=== PATIENT | female | born 1950 ===

== ENCOUNTER 2016-11-13 09:49 | Day surgery (SDC) | payer MEDICARE ==
[2016-08-23 09:05] VITALS: BMI 32.2
[2016-11-13] MEDS ORDERED: Bupivacaine HCl 0.5% PF (10 ml) Inj ONE ×2 (11:52→14:00)
[2016-11-13] MEDS ORDERED: Lactated Ringer's 1,000 ML IV ONE ×2 (12:08)
[2016-11-13] MEDS: ceFAZolin IV 1 gm in Dextrose 50 ML IVPB ONE ×2 (12:08→12:30)
[2016-11-13] MEDS: Lidocaine 2% Inj (20ml) ONE ×2 (12:09→12:30)
[2016-11-13] MEDS: Bupivacaine HCl 0.5% PF (10 ml) Inj ONE ×3 (12:10→14:03)
[2016-11-13] MEDS ORDERED: ceFAZolin IV 1 gm in Dextrose 50 ML IVPB ONE (12:16)
[2016-11-13] MEDS ORDERED: Midazolam 2 MG/2 ML VIAL ONE (12:22)
[2016-11-13] MEDS ORDERED: Propofol 10 mg/ml Inj (20 ML) ONE ×3 (12:22→13:52)
[2016-11-13] MEDS ORDERED: Lidocaine Hydrochloride 5 ML INJ ONE (12:27)
[2016-11-13] MEDS ORDERED: Lidocaine 1% Inj (20ml) ONE (12:47)
[2016-11-13] MEDS ORDERED: HYDROmorphone 0.5 mg/0.5 ml ISec IVP PRN (14:41)
--- NOTE | 2016-11-13 14:43 | PCM.SURG1 ---
Surgeon's Initial Post Op Note - Surgeon's Notes Surgeon: Dr. Francois Compensation And Hris Analyst: Dr. Ott, PGY-1 Type of Anesthesia: IV Sedation, Local Anesthesia Administered By: Dr. Allan Pre-Operative Diagnosis: painful hallux abductovalgus, painful 2nd digit hammer toe, painful 5th digit hammer toe of right foot Operative Findings: see operative report Post-Operative Diagnosis: same Operation Performed: 1st metatarsal distal osteotomy (right), 2nd metatarsal weill osteotomy w/ extensor tenotomy (right), PIPJ arthroplasty 5th digit (right ) Specimen/Specimens Removed: none Estimated Blood Loss: EBL {In ML}: 5 Blood Products Given: N/A Drains Used: No Drains Post-Op Condition: Good Date of Surgery/Procedure: 11/13/16 Time of Surgery/Procedure: 12:20
[2016-11-13] MEDS ORDERED: Oxycodone/Acetaminophen 5/325 mg Tab PO PRN ×2 (14:44)
[2016-11-13] MEDS ORDERED: Lactated Ringer's 1,000 ML IV SCH (14:45)
[2016-11-13 17:04] VITALS: BP 140/80; PULSE 70; RESP 18; TEMP 98.8; O2SAT 100
--- NOTE | 2016-11-13 17:05 | RAD ---
PROCEDURE: Right Foot Radiographs. HISTORY: s/p right foot surgery COMPARISON: Bilateral foot radiographs performed 07/10/16 FINDINGS: Images are obtained through a splint which obscures osseous detail. Evidence of recent 1st metatarsal osteotomy for bunionectomy with 2 cortical screws providing stabilization at the osteotomy. No significant callus formation is identified at this time. K-wire noted at the level of the 5th proximal, mid, and distal phalanx. Small calcaneal enthesophyte. The remaining visualized osseous structures appear unremarkable. Soft tissue swelling. IMPRESSION: Postoperative appearance as above.
--- NOTE | 2016-11-13 17:51 | CP.SDSHP ---
Same Day Surgery H & P - History Proposed Procedure: 1st metatarsal distal osteotoym, 2nd metatarsal german osteotomy, 5th digit PIPJ arthroplasty (all right foot) Pre-Op Diagnosis: painful hallux valgus, painful hammer toe 2nd digit, painful hammer toe 5th digit (all right foot) - Previous Medical/Surgical History Pain: 5. - Allergies Allergies: Allergies No Known Allergies Allergy (Verified 07/07/15 12:21) - Current Medications Current Medications: Home Medication List Medication Instructions Recorded Confirmed Type Cephalexin [cephalexin] 500 mg PO BID #20 cap 11/13/16 Rx oxyCODONE/Acetaminophen [Percocet 1 ea PO Q4 PRN #30 tab 11/13/16 Rx 5/325 mg Tab] - Physical Exam Vital Signs: Vital Signs 11/13/16 11/13/16 11/13/16 10:08 14:41 14:55 Temperature 98.2 F Pulse Rate 90 93 H 90 Respiratory 18 14 14 Rate Blood Pressure 139/83 156/73 H 140/82 O2 Sat by Pulse 97 95 97 Oximetry 11/13/16 11/13/16 11/13/16 15:10 15:25 15:42 Temperature 96.8 F L Pulse Rate 87 84 91 H Respiratory 18 15 12 Rate Blood Pressure 140/82 136/80 147/84 O2 Sat by Pulse 98 100 97 Oximetry 11/13/16 16:30 Temperature 98.8 F Pulse Rate 70 Respiratory 18 Rate Blood Pressure 140/80 O2 Sat by Pulse 100 Oximetry Mental Status: Alert & Oriented x3 Neuro: WNL - Impression Impression: Pt seen and evaluated in [facility]. NPO status confirmed. Consent signed and in chart. Short Stay Discharge - Short Stay Discharge Admitting Diagnosis/Reason for Visit: GINNA Disposition: HOME/ ROUTINE Medications: Cephalexin [cephalexin] 500 mg PO BID #20 cap oxyCODONE/Acetaminophen [Percocet 5/325 mg Tab] 1 ea PO Q4 PRN #30 tab PRN Reason: Pain, Moderate (4-7) Referrals: Priscila Francois DPM [Staff Provider] - Additional Instructions (Diet, Activity): -Keep dressing clean, dry, intact (do note get dressing wet) -Use cast bag over dressing for showering -partial weight bearing to heel with surgical shoe -take all medications as prescribed -You have sutures that will be removed in the office -Follow up in the clinic with Dr. Francois in 1 week Progress Note/Discharge Note with Instructions: VSS, neurovascular status intact right foot.
--- NOTE | 2016-11-14 07:30 | OP ---
PROCEDURE DATE: 11/13/2016 SURGEON: Priscila Francois DPM. THREE DIMENSIONAL ART INSTRUCTOR: Dr. Shahana Salinas, PGY-1. VESSEL WELDER: Dr. Allan. ANESTHESIA: IV sedation with local. PREOPERATIVE DIAGNOSES: Painful hallux valgus deformity, right foot; painful second digit hammertoe, right foot; painful fifth digit hammertoe, right foot. POSTOPERATIVE DIAGNOSES: Painful hallux valgus deformity, right foot; painful second digit hammertoe , right foot; painful fifth digit hammertoe, right foot. PROCEDURE PERFORMED: First metatarsal distal osteotomy, right foot; second metatarsal Shannan osteotomy , right foot; fifth digit PIPJ arthroplasty, right foot. INDICATIONS FOR PROCEDURE: The patient is a 66-year-old female with the above diagnoses. The patien t has exhausted conservative treatment at this time and requests surgical intervention. The patient signed the consent after careful explanation of risks, benefits, complications and alternatives for s urgical procedure. No guarantees were given nor implied. One gram of Ancef IV was given to the shivani ent prior to the procedure. N.p.o. status was confirmed prior to taking the patient to the OR. DESCRIPTION OF PROCEDURE: The patient was brought into the operating room and placed on the operatin g room table in the supine position. A well-padded pneumatic ankle tourniquet was placed at the shivani ent's right ankle in the supramalleolar position. After induction of IV sedation, the patient receiv ed a total of 30 mL of 1:1 mixture of 0.5% Marcaine plain and 1% lidocaine plain in local block type fashion to the right foot. Once local anesthesia was achieved, the right foot was then prepped and d raped in usual sterile manner. Esmarch was utilized to exsanguinate the patient's right foot. Pneum atic ankle tourniquet was then inflated to 250 mmHg and the procedure began. Attention was then directed to the dorsal aspect of the first metatarsal head of the right foot where an approximately 6 cm linear longitudinal incision was made medial and parallel to the extensor corona ucis longus tendon and involved the contour of the deformity. The incision was deepened through the subcutaneous tissues using sharp and blunt dissection. At this time, it was noted that the patient r equired further local anesthesia and an additional 10 mL of 1% lidocaine plain was injected to the fo ot. Care was taken to identify and retract all vital neurovascular structures. All bleeders were ca uterized and ligated as necessary. Attention was then directed to the first interspace via the origi nal incision where the tendon of the extensor hallucis brevis was identified and tenotomized. Dissec tion was continued deep using blunt dissection down to the level of the fibular sesamoid, which was f samantha of its soft tissue attachments proximally, laterally, and distally. The conjoined tendon of the adductor hallucis muscle was then identified and transected at its attachments to the base of the pr oximal phalanx of the hallux. At this time, the lateral contracture present on the hallux was noted to be reduced and the sesamoid apparatus was noted to float in a more corrected medial position. At this time, an inverted L-type capsulotomy was performed over the dorsal aspect of the first metatarso phalangeal joint. The periosteal and capsular structures were then carefully dissected free of their osseous attachments and reflected medially and laterally to expose the head of the first metatarsal. Next, utilizing an oscillating bone saw, the dorsal and medial prominences were resected and passed from the operative field. All rough edges were then smoothed down with a bone rasp. At this time, the hip was externally rotated and the knee was flexed to bring the medial surface of the foot superi or to allow for better visualization of the medial aspect of the first metatarsal head for the osteot shawn cut. Attention was then directed to the medial aspect of the first metatarsal head where a throu gh and through V-type osteotomy was created in the metaphyseal region of the bone utilizing oscillati ng bone saw. The apex of the osteotomy pointed distally with the arms pointing proximal plantarly an d proximal dorsally. The dorsal arm was made longer to accommodate internal fixation. Upon completi on of the osteotomy, the capital fragment was distracted and shifted laterally into a more corrected position and impacted upon the first metatarsal shaft. At this time, two 0.045 inch K-wires were dri payal from dorsal to plantar across the osteotomy site to serve as temporary fixation. Following seque ntial removal of the K-wires and following standard AO technique, 2 cortical screws measuring 2.0 x 1 6 mm were inserted in their place across the osteotomy site with excellent compression noted. The re maining K-wires were then removed. Attention was then directed to the remaining medial bone shelf, w hich was resected utilizing the oscillating bone saw and passed from the operative field. Correction of the deformity was then assessed at this time and was noted to be excellent. The wound was flushe d with copious amounts of sterile normal saline solution. The periosteal and capsular structures wer e then reapproximated and coapted using #2-0 and #3-0 Vicryl. Redundant capsular tissues were resect ed as necessary. The subcutaneous tissues were then reapproximated and coapted using #4-0 Vicryl. T he skin was then reapproximated and coapted utilizing #3-0 Prolene in interrupted suture technique. Next, attention was directed to the second metatarsophalangeal joint. Using a #15 blade, a linear in cision was created just lateral to the second metatarsophalangeal joint. This was done to avoid post operative contracture overlying the second metatarsophalangeal joint and some minimal scar formation. The incision was carried down to deeper plane, paying careful attention to all neurovascular struct ures that were retracted, ligated and bovied as necessary. The incision was deepened down to the lev el of the long extensor tendon. The long extensor tendon was identified and retracted medially. Att ention was drawn to the capsular and periosteal tissues. A sharp periosteal and capsular incision wa s created being careful not to score the articular cartilage at the second metatarsal head. The andra osteal tissue was sharply reflected from this area to expose the head and neck of the second metatars ophalangeal joint. At this time, with the use of a sagittal saw, a Shannan-type osteotomy was created a t the second metatarsal starting from the most proximal portion of the articular cartilage, the dorsa l aspect of the second metatarsal and then an oblique cut staying parallel to the weightbearing surfa ce was achieved through and through. The capital fragment was transposed proximally. It was palpate d. It was noted to be consistent with normal parabola. It was temporarily fixated with a 0.045 inch K-wire and permanently fixated with a 2.0 x 16 mm cortical screw using strict AO technique. The os teotomy was noted to be rectus and the parabola restored. The long extensor tendon was then tenotomi zed in order to avoid a floating second metatarsal or lack of purchase of the second toe. The wound was then flushed with copious amounts of sterile normal saline solution. The periosteal capsular str uctures were then reapproximated and coapted utilizing #2-0 and #3-0 Vicryl. Subcutaneous tissues we re then reapproximated and coapted utilizing #4-0 Vicryl. The skin was then reapproximated and coapt ed utilizing 3-0 Prolene in an interrupted suture technique. Attention was then directed to the dorsolateral aspect of the fifth digit where an approximately 1 cm elliptical incision was made overlying the proximal interphalangeal joint. The incision was then de epened through the subcutaneous tissues with care being taken to identify and retract all vital neuro vascular structures. All bleeders were cauterized and ligated as necessary. At this time, a transve rse tenotomy and capsulotomy were performed to the proximal interphalangeal joint. The head of the p roximal phalanx was then freed of all capsular and ligamentous attachments. Next, utilizing the osci llating saw, the head of the proximal phalanx was resected and passed from the operative field. The wound was then flushed with copious amounts of sterile normal saline. Next, a 0.045 inch K-wire was driven from the base of the middle phalanx exiting the distal aspect of the fifth digit. The K-wire was then retrograded proximally into the remaining aspect of the proximal phalanx. Correction of the deformity was assessed at this time and noted to be excellent. The extensor tendon overlying the fi fth digit was then reapproximated using #3-0 Vicryl suture. Subcutaneous tissues were then reapproxi mated using #4-0 Vicryl. The skin was then reapproximated using #3-0 Prolene in interrupted suture t echnique. The foot was then thoroughly cleansed with saline and dressed with Betadine-soaked Adaptic , Betadine soaked 4 x 4 gauze splints Kerlix and Tensoplast. It should be noted that the attending, Dr. Francois was present during the entire case. POSTOPERATIVE CONDITION: The patient tolerated the anesthesia and procedure well and was escorted to the recovery room with vital signs stable and neurovascular status intact to the right foot. The pa tient is to be partial weightbearing to the right heel. She is to follow up with Dr. Francois within 1 week in clinic. SHAHANA SALINAS DPM Priscila Francois DPM cc: [id number] TT: 11/14/2016 07:29:17 nn
== END 2016-11-13 17:05 | disposition home or self-care (01) ==
LOC: C.SDS 09:49
PROVIDERS: ATTEND Podiatrist Foot & Ankle Surgery
DX: M20.11 Hallux valgus (acquired), right foot (principal); M20.41 Other hammer toe(s) (acquired), right foot
CPT/HCPCS: 28285; 28296; 73620; 97116; 97161; G8978; G8979; G8980; J0690; J1100; J2250; J2704; J3010; J7120

== ENCOUNTER 2017-09-15 17:41 | Emergency (ER) | payer MEDICARE ==
[2017-09-15 17:42] VITALS: BMI 32.2
[2017-09-15 20:33] LABS: BASO # 0.1 K/uL (0.0-0.2); EOS # 0.3 K/uL (0.0-0.7); EOS % 2.9 % (0.0-4.0); HEMOGLOBIN 12.7 g/dL (11.0-16.0); LYMPH # 3.4 K/uL (1.0-4.3); LYMPH % 32.1 % (20.0-40.0); MEAN CELL VOLUME 82.9 fL (81.0-99.0); MEAN CORPUSCULAR HEMOGLOBIN 28.5 pg (27.0-31.0); MEAN CORPUSCULAR HGB CONC 34.4 g/dL (33.0-37.0); MEAN PLATELET VOLUME 7.3 fL (7.2-11.7); MONO # 0.6 K/uL (0.0-0.8); MONO % 5.7 % (0.0-10.0); NEUT # 6.2 K/uL (1.8-7.0); NEUT % 58.3 % (50.0-75.0); RBC 4.47 Mil/uL (3.80-5.20); RED CELL DISTRIBUTION WIDTH 14.5 % (11.5-14.5); WHITE BLOOD COUNT 10.6 K/uL (4.8-10.8)
[2017-09-15 20:53] LABS: ALBUMIN 4.1 g/dL (3.5-5.0); ALT/SGPT 29 U/L (9-52); AST/SGOT 38 U/L (14-36); BLOOD UREA NITROGEN 19 mg/dL (7-17); CALCIUM 9.5 mg/dl (8.6-10.4); GFR AFRICAN-AMERICAN > 60; GFR NON-AFRICAN AMERICAN > 60
--- NOTE | 2017-09-15 20:53 | C.PDOC ---
History Of Present Illness 67 y/o female presents to ED for concerns of her high blood pressure.Associated symptoms are dizziness, blurred vision, and lightheadedness. Pt states she stopped taking her blood pressure medications since March 2017. Pt states she has not been to a doctor for a follow up and currently does not have a PCP. Denies any other complaints. Chief Complaint (Nursing): High Blood Pressure History Per: Patient History/Exam Limitations: no limitations Onset/Duration Of Symptoms: Hrs Current Symptoms Are (Timing): Still Present Associated Symptoms: Dizziness, Blurred Vision. denies: Chest Pain, Focal Weakness, Headache Exacerbating Factor(s): Pos: None Recent travel outside of the [place]: No Past Medical History Reviewed: Historical Data, Nursing Documentation, Vital Signs Vital Signs: Last Vital Signs Temp 98.6 F 09/15/17 21:03 Pulse 75 09/15/17 21:03 Resp 18 09/15/17 21:03 BP 157/89 H 09/15/17 21:03 Pulse Ox 97 09/15/17 21:53 - Medical History PMH: HTN, Hypothyroidism Surgical History: Appendectomy Family History: States: Unknown Family Hx - Social History Hx Tobacco Use: No Hx Alcohol Use: No Hx Substance Use: No - Immunization History Hx Tetanus Toxoid Vaccination: No Hx Influenza Vaccination: Yes Hx Pneumococcal Vaccination: No Review Of Systems Constitutional: Negative for: Fever Eyes: Positive for: Vision Change Cardiovascular: Negative for: Chest Pain, Palpitations Gastrointestinal: Negative for: Nausea, Vomiting, Abdominal Pain, Diarrhea Neurological: Positive for: Dizziness, Other (lightheadedness). Negative for: Weakness, Numbness, Change in Speech, Headache Physical Exam - Physical Exam Appears: Well, Non-toxic, No Acute Distress Skin: Normal Color, Warm, Dry Head: Atraumatic, Normacephalic Eye(s): bilateral: Normal Inspection Oral Mucosa: Moist Neck: Supple Chest: Symmetrical, No Tenderness Cardiovascular: Rhythm Regular Respiratory: Normal Breath Sounds, No Decreased Breath Sounds, No Rales, No Rhonchi, No Wheezing Gastrointestinal/Abdominal: Soft, No Tenderness Extremity: Normal ROM, No Tenderness, No Pedal Edema Extremity: Bilateral: Normal Color And Temperature, Normal ROM Pulses: Left Femoral: Normal, Right Femoral: Normal Neurological/Psych: Oriented x3, Normal Speech, Normal Cognition, Other (no focal deficits) ED Course And Treatment - Laboratory Results Result Diagrams: 09/15/17 20:31 09/15/17 20:31 ECG: Interpreted By Me ECG Rhythm: Sinus Rhythm ECG Interpretation: Normal, No Acute Changes Interpretation Of ECG: NSR at 75 BPM,No acute sttw changes or ectopy O2 Sat by Pulse Oximetry: 97 (RA) Pulse Ox Interpretation: Normal Medical Decision Making Medical Decision Making: Administered Catapres. Ordered EKG and blood work. Disposition - Disposition Referrals: [facility] [Outside] Disposition: HOME/ ROUTINE Disposition Time: 21:26 Condition: FAIR Prescriptions: Clonidine HCl [Catapres] 0.1 mg PO TID #42 tablet Forms: [employer] ([place]), Gen Discharge Inst [place] - Clinical Impression Clinical Impression: Hypertension - Scribe Statement The provider has reviewed the documentation as recorded by the Scribmai Iverson All medical record entries made by the Scribe were at my direction and personally dictated by me. I have reviewed the chart and agree that the record accurately reflects my personal performance of the history, physical exam, medical decision making, and the department course for this patient. I have also personally directed, reviewed, and agree with the discharge instructions and disposition.
[2017-09-15 21:05] VITALS: BP 157/89; PULSE 75; RESP 18; TEMP 98.6
[2017-09-15 21:29] VITALS: O2SAT 97
--- NOTE | 2017-09-19 14:10 | CARD ---
APPROVED REPORT EKG Measurement Heart [id number] <Conclusion> Normal sinus rhythm Normal ECG
== END 2017-09-15 21:54 | disposition home or self-care (01) ==
LOC: C.ER 17:41
DX: I10 Essential (primary) hypertension (principal); E03.9 Hypothyroidism, unspecified